=== PATIENT | male | born 1950 | race Caucasian/White ===

== ENCOUNTER 2016-06-11 12:41 | Emergency (ER) | payer MEDICARE ==
[~2016-06-11] VITALS: Ht 172.7 cm; Wt 68.0 kg
[~2016-06-11 12:41] MED LIST: ALLO100T PO; ATOR40TA PO; BACL10TA PO; CELE100C PO; ECASA PO; GABA300C3 PO; LISI5 PO; OMEP20TA39 PO; PROZ20CA11 PO
[2016-06-11] MEDS ORDERED: SODIUM CHLOR 0.9% 1000 ML INJ 1,000 ML IV ONE (12:50)
[2016-06-11 12:51] VITALS: BP 113/73; PULSE 68; RESP 18; TEMP 97.8; O2SAT 94
--- NOTE | 2016-06-11 12:54 | PD ---
HPI Chief Complaint: Syncope/Near-Syncope Time Seen by Provider: 12:50 Travel History International Travel<30 days: No Contact w/Intl Traveler<30days: No History of Present Illness HPI Patient is a 65-year-old male who presents the emergency department after syncopal episode. Patient states that he was bending over to take food out of the abdomen when he felt lightheaded, dizzy, nauseous and fell backwards, with a syncopal episode. It is unclear to me whether family caught him or whether he hit his head but he does now have a left-sided primarily temporal headache. Mild nausea but no vomiting. No associated chest pain, shortness breath, palpitations. Patient notes a history of seizure disorder, CVA and hypertension. Vital signs and twelve-lead EKG stable per EMS. PFSH Past Medical History Hx Anticoagulant Therapy: Yes (81 MG ASA) Arthritis: Yes Asthma: Yes Autoimmune Disease: No Blood Disorders: No Anxiety: Yes Depression: Yes Heart Rhythm Problems: No Cancer: No Cardiovascular Problems: No High Cholesterol: Yes Chemotherapy: No Chest Pain: No Congestive Heart Failure: No COPD: No Cerebrovascular Accident: No Diabetes: No Diminished Hearing: Yes ([place]) Endocrine: No GERD: Yes Glaucoma: No Gout: Yes Genitourinary: No Headaches: No Hepatitis: No Hiatal Hernia: No Hypertension: No Immune Disorder: No Implanted Vascular Access Dvce: Yes Kidney Stones: Yes Musculoskeletal: Yes (neck and back problems) Neurologic: No Psychiatric: Yes (anxiety and depression) Reproductive: No Respiratory: Yes (ASTHAM) Immunizations Current: Yes Myocardial Infarction: No Radiation Therapy: No Renal Failure: No Seizures: No Sickle Cell Disease: No Sleep Apnea: No Thyroid Disease: No Ulcer: No Past Surgical History Abdominal Surgery: No AICD: No Body Medical Devices: spinal cord stimulator rods in the back Cardiac Surgery: No Ear Surgery: No Endocrine Surgery: No Eye Surgery: Yes (dalia cataract surgery) Genitourinary Surgery: No Gynecologic Surgery: No Joint Replacement: No Oral Surgery: No Thoracic Surgery: No Other Surgery: Yes (BACK FUSION IN 1999,C5-6) Social History Alcohol Use: No Tobacco Use: No Substance Use: Yes (MARIJUANNA) Allergies-Medications (Allergen,Severity, Reaction): Coded Allergies: MRI PRECAUTION (Verified Adverse Reaction, Severe, NON COMPATIBLE SPINAL CORD STIMULATOR 09/09/15 KMD, 09/09/15) [employer] PERCISION PLUS SPINAL CORD STIMULATOR Reported Meds & Prescriptions Reported Meds & Active Scripts Active Celebrex (Celecoxib) 100 Mg Cap 100 Mg PO BID Prinivil 5 mg (Lisinopril) 5 Mg Tab 5 Mg PO Q12HR Aspirin EC (Aspirin) 325 Mg Tab 325 Mg PO DAILY 30 Days Reported Gabapentin 300 Mg Cap 600 Mg PO HS Gabapentin 300 Mg Cap 300 Mg PO BID Take 1 capsule (300mg) in the morning and at 4pm Atorvastatin 40 mg (Atorvastatin Calcium) 40 Mg Tab 40 Mg PO DAILY Allopurinol 100 Mg Tab 200 Mg PO DAILY Hm Omeprazole (Omeprazole) 20 Mg Tab 20 Mg PO DAILY Lioresal (Baclofen) 10 Mg Tab 10 Mg PO BID Prozac (Fluoxetine HCl) 20 Mg Cap 20 Mg PO DAILY Review of Systems Except as stated in HPI: all other systems reviewed are Neg Physical Exam Narrative GENERAL: Well-appearing male in no acute distress SKIN: Focused skin assessment warm/dry. HEAD: Atraumatic. Normocephalic. EYES: Pupils equal and round. No scleral icterus. No injection or drainage. ENT: No nasal bleeding or discharge. Mucous membranes pink and moist. NECK: Supple without midline tenderness to palpation. No JVD. CARDIOVASCULAR: Regular rate and rhythm. No murmur appreciated. RESPIRATORY: No accessory muscle use. Clear to auscultation. Breath sounds equal bilaterally. GASTROINTESTINAL: Abdomen soft, non-tender, nondistended. MUSCULOSKELETAL: No obvious deformities. No edema. NEUROLOGICAL: Awake and alert. No obvious cranial nerve deficits. Motor grossly within normal limits. Normal speech. PSYCHIATRIC: Appropriate mood and affect; insight and judgment normal. Data Data Last Documented VS Vital Signs Date Time Temp Pulse Resp B/P Pulse Ox O2 Delivery O2 Flow Rate FiO2 06/11/16 12:51 97.8 68 18 113/73 94 Orders Electrocardiogram (06/11/16 12:50) Basic Metabolic Panel (Bmp) (06/11/16 12:50) Complete Blood Count With Diff (06/11/16 12:50) Magnesium (Mg) (06/11/16 12:50) Troponin I (06/11/16 12:50) Ct Brain W/O Iv Contrast(Rout) (06/11/16 12:50) Ecg Monitoring (06/11/16 12:50) Iv Access Insert/Monitor (06/11/16 12:50) Oximetry (06/11/16 12:50) Ondansetron Inj (Zofran Inj) (06/11/16 13:00) Sodium Chloride 0.9% Flush (Ns Flush) (06/11/16 13:00) Sodium Chlor 0.9% 1000 Ml Inj (Ns 1000 M (06/11/16 12:50) MDM Medical Decision Making Medical Screen Exam Complete: Yes Emergency Medical Condition: Yes Medical Record Reviewed: Yes Differential Diagnosis 65-year-old male with history of HTN, CVA, seizure disorder here after syncopal episode. Differential includes orthostasis, arrhythmia, electrolyte abnormality , symptomatic anemia, subarachnoid hemorrhage, ACS. Narrative Course Patient placed on monitor, IV established and blood obtained. Given 1 L normal saline bolus, 4 mg Zofran. Twelve-lead EKG showed sinus rhythm without notable ST abnormalities, normal intervals. CBC, BMP, magnesium, troponin notable for[- ]. CT of the brain showed[-] Nidhi Meneses MD Jun 11, 2016 12:54
[2016-06-11] MEDS ORDERED: SODIUM CHLORIDE 0.9% FLUSH 10 ML FLUSH IVF PRN (13:00)
[2016-06-11] MEDS ORDERED: ONDANSETRON HCL 4 MG/2 ML VIAL IVP ONE (13:00)
[2016-06-11] MEDS ORDERED: ATOR40TA16 PO (13:20)
[2016-06-11] MEDS ORDERED: ASPI81CH CHEW (13:20)
[2016-06-11] MEDS ORDERED: ALLO100T PO (13:20)
[2016-06-11] MEDS ORDERED: PROZ20CA11 PO (13:20)
[2016-06-11] MEDS ORDERED: LISI-519 PO (13:20)
[2016-06-11] MEDS ORDERED: BACL10TA PO (13:20)
[2016-06-11] MEDS ORDERED: GABA300C5 PO (13:20)
[2016-06-11] MEDS ORDERED: OMEP20TA PO (13:20)
[2016-06-11 13:22] LABS: AUTOMATED NEUTROPHIL # 10.6 TH/MM3 (1.8-7.7); BASOPHIL # 0.1 TH/MM3 (0-0.2); BASOPHIL % 0.5 % (0.0-2.0); EOSINOPHIL # 0.4 TH/MM3 (0-0.4); EOSINOPHIL % 2.6 % (0.0-4.0); HEMATOCRIT 41.3 % (39.0-51.0); HEMO FLAGS DIFF FINAL; LYMPHOCYTE # 2.2 TH/MM3 (1.0-4.8); MEAN CELL VOLUME 92.3 FL (80.0-100.0); MEAN CORPUSCULAR HEMOGLOBIN 30.3 PG (27.0-34.0); MEAN CORPUSCULAR HGB CONC 32.8 % (32.0-36.0); MONO % 8.6 % (0.0-8.0); NEUT % 73.3 % (16.0-70.0); PLATELET COUNT 212 TH/MM3 (150-450); RED BLOOD COUNT 4.48 MIL/MM3 (4.50-5.90); RED CELL DISTRIBUTION WIDTH 13.5 % (11.6-17.2); WHITE BLOOD COUNT 14.5 TH/MM3 (4.0-11.0)
[2016-06-11 13:28] LABS: ANION GAP 6 MEQ/L (5-15); BICARBONATE 28.5 MEQ/L (21.0-32.0); BLOOD UREA NITROGEN 30 MG/DL (7-18); CHLORIDE 105 MEQ/L (98-107); GLOMERULAR FILTRATION RATE 39 ML/MIN (>89); MAGNESIUM 2.1 MG/DL (1.5-2.5); POTASSIUM 4.8 MEQ/L (3.5-5.1); SODIUM (NA) 139 MEQ/L (136-145)
--- NOTE | 2016-06-11 13:49 | RADRPT ---
EXAM DATE/TIME: 06/11/2016 13:24 [facility] COMPARISON: CT BRAIN W/O CONTRAST, September 11, 2015, 11:56. INDICATIONS : Syncopal episode and general weakness today. RADIATION DOSE: 36.65 CTDIvol (mGy) MEDICAL HISTORY : Stroke. Seizures. SURGICAL HISTORY : Fusion, cervical. ENCOUNTER: Initial ACUITY: 1 day PAIN SCALE: 0/10 LOCATION: Bilateral head TECHNIQUE: Multiple contiguous axial images were obtained of the head. Using automated exposure control and adj ustment of the mA and/or kV according to patient size, radiation dose was kept as low as reasonably a chievable to obtain optimal diagnostic quality images. FINDINGS: There is no evidence for intracranial hemorrhage, mass effect, mass lesions, or edema. The visualize d bony structures appear intact. Slight degree of brain atrophy is seen. Slight periventricular whit e matter changes are seen nonspecific mostly consistent with chronic small vessel ischemic changes. There are no signs of acute infarction for technique. 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 There is sinusitis in multiple sinuses worse in the maxillary sinu ses. CONCLUSION: Slight atrophic and small vessel ischemic changes without any evidence for acute hemorrhage or mass effect. Elizabeth Muñoz MD on June 11, 2016 at 13:45 Board Certified Radiologist. This report was verified electronically.
[2016-06-11 14:26] VITALS: BP 115/70
--- NOTE | 2016-06-12 11:50 | EKG ---
Date Performed: 06/11/2016 Time Performed: 13:08:41 PTAGE: 65 years EKG: Sinus rhythm ABNORMAL RHYTHM ECG PREVIOUS TRACING : 09/08/2015 13.30 Compared to prior tracing no significant change DOCTOR: Eugenio Turpin Interpretating Date/Time 06/12/2016 11:49:15
== END 2016-06-11 14:49 | disposition home or self-care (01) ==
LOC: NEPE 12:41
DX: R55 Syncope and collapse (principal); F41.8 Other specified anxiety disorders; I10 Essential (primary) hypertension; E78.00 Pure hypercholesterolemia, unspecified; R94.31 Abnormal electrocardiogram [ECG] [EKG]; Z86.73 Personal history of transient ischemic attack (TIA), and cerebral infarction without residual deficits; Z79.82 Long term (current) use of aspirin
CPT/HCPCS: 70450; 80048; 83735; 84484; 85025; 93005; 96361; 96374; 99284; J2405; J7030

== ENCOUNTER 2017-01-13 21:48 | Emergency (ER) | payer MEDICARE ==
[~2017-01-13] VITALS: Ht 172.7 cm; Wt 70.0 kg
[~2017-01-13 21:48] MED LIST changes: +ASPI-516 CHEW; -ATOR40TA PO; +ATOR40TA16 PO; -CELE100C PO; -ECASA PO; -GABA300C3 PO; +GABA300C5 PO; +LISI-519 PO; -LISI5 PO; -OMEP20TA39 PO; +OMEP20TA93 PO
[2017-01-13 21:53] VITALS: PULSE 70; RESP 16; TEMP 97.9; O2SAT 96
[2017-01-13 22:02] VITALS: BP 145/77
[2017-01-13] MEDS ORDERED: TRAM50TA PO (22:09)
[2017-01-13] MEDS ORDERED: oxyCODONE/ACETAMINOPHEN 7.5 MG/325 MG TAB PO ONE (22:15)
--- NOTE | 2017-01-13 22:21 | PD ---
HPI Chief Complaint: Hip Injury Time Seen by Provider: 21:55 Travel History International Travel<30 days: No Contact w/Intl Traveler<30days: No Traveled to known affect area: No History of Present Illness HPI 66-year-old male arrives complaining of right hip pain. It has been bothersome for a few months at least. He saw rheumatology [address] imaging of the hands and hips was advised however the patient was unable to do so due to cost. He reports a continuous pain since then typically for over 10 however yesterday the pain became quite a bit worse somewhat suddenly and it is remained more or less severe since. He has been unable to walk on stairs due to the pain. He denies fall/excessive use. He reports no drug or alcohol abuse. He does not smoke cigarettes. He last took tramadol about 8 hours prior and reports compliance with Neurontin generally has been a positive. PFSH Past Medical History Hx Anticoagulant Therapy: Yes (asa) Arthritis: Yes Asthma: Yes Autoimmune Disease: No Blood Disorders: No Anxiety: Yes Depression: Yes Heart Rhythm Problems: No Cancer: No Cardiovascular Problems: No High Cholesterol: Yes Chemotherapy: No Chest Pain: No Congestive Heart Failure: No COPD: No Cerebrovascular Accident: Yes Diabetes: No Diminished Hearing: Yes ([place]) Endocrine: No GERD: Yes Glaucoma: No Gout: Yes Genitourinary: No Headaches: No Hepatitis: No Hiatal Hernia: No Hypertension: No Immune Disorder: No Implanted Vascular Access Dvce: Yes Kidney Stones: Yes Medical other: Yes (reflux hx of kidney stones arthritis gout) Musculoskeletal: Yes (neck and back problems) Neurologic: No Psychiatric: Yes (anxiety and depression) Reproductive: No Respiratory: Yes (ASTHAM) Immunizations Current: Yes Myocardial Infarction: No Radiation Therapy: No Renal Failure: No Seizures: No Sickle Cell Disease: No Sleep Apnea: No Thyroid Disease: No Ulcer: No Influenza Vaccination: Yes Past Surgical History Abdominal Surgery: No AICD: No Body Medical Devices: spinal cord stimulator rods in the back Cardiac Surgery: No Ear Surgery: No Endocrine Surgery: No Eye Surgery: Yes (dalia cataract surgery) Genitourinary Surgery: No Gynecologic Surgery: No Joint Replacement: No Oral Surgery: No Thoracic Surgery: No Other Surgery: Yes (BACK FUSION IN 1999,C5-6) Social History Alcohol Use: No Tobacco Use: No Substance Use: Yes (JANETTE) Allergies-Medications (Allergen,Severity, Reaction): Coded Allergies: MRI PRECAUTION (Verified Adverse Reaction, Severe, NON COMPATIBLE SPINAL CORD STIMULATOR 09/09/15 KMD, 09/09/15) [employer] PERCISION PLUS SPINAL CORD STIMULATOR Reported Meds & Prescriptions Reported Meds & Active Scripts Active Reported Tramadol (Tramadol HCl) 50 Mg Tab 50 Mg PO Q6H PRN Omeprazole 20 Mg Tab 20 Mg PO DAILY Gabapentin 300 Mg Cap 300 Mg PO QID Prozac (Fluoxetine HCl) 20 Mg Cap 20 Mg PO DAILY Atorvastatin (Atorvastatin Calcium) 40 Mg Tab 40 Mg PO HS Baclofen 10 Mg Tab 10 Mg PO HS PRN Aspirin 81 Mg Chew 324 Mg CHEW DAILY Allopurinol 100 Mg Tab 100 Mg PO DAILY Review of Systems Except as stated in HPI: all other systems reviewed are Neg General / Constitutional: No: Fever Musculoskeletal: Positive: Pain Physical Exam Narrative GENERAL: 66 yo M, WNWD, mild distress 2/2 pain SKIN: Warm and dry. HEAD: Atraumatic. Normocephalic. EYES: Pupils equal and round. No scleral icterus. No injection or drainage. ENT: No nasal bleeding or discharge. Mucous membranes pink and moist. NECK: Trachea midline. No JVD. CARDIOVASCULAR: Regular rate and rhythm. RESPIRATORY: No accessory muscle use. Clear to auscultation. Breath sounds equal bilaterally. GASTROINTESTINAL: Abdomen soft, non-tender, nondistended. Hepatic and splenic margins not palpable. MUSCULOSKELETAL: Passive ROM R hip somewhat limited 2/2 pain. No erythema/ warmth or tenderness or deformity overlying R greater trochanter. LLE normal. NEUROLOGICAL: Awake and alert. No obvious cranial nerve deficits. Motor grossly within normal limits. Five out of 5 muscle strength in the arms and legs. Normal speech. PSYCHIATRIC: Appropriate mood and affect; insight and judgment normal. Data Data Last Documented VS Vital Signs Date Time Temp Pulse Resp B/P (MAP) Pulse Ox O2 Delivery O2 Flow Rate FiO2 01/13/17 22:02 145/77 (99) 01/13/17 21:53 97.9 70 16 96 VS reviewed Orders Orders Hip, Uni(Ap&Lat) W Ap Pelvis (01/13/17 ) Oxycodone-Acetamin 7.5-325 Mg (Percocet (01/13/17 22:15) MDM Medical Decision Making Medical Screen Exam Complete: Yes Emergency Medical Condition: Yes Medical Record Reviewed: Yes Differential Diagnosis Septic arthritis fracture referred pain Narrative Course Last Impressions Hip and Pelvis X-Ray 01/13/17 0000 Signed Impressions: Service Date/Time: Friday, January 13, 2017 22:21 - CONCLUSION: Normal radiographic appearance of the pelvis and right hip. Fred Story MD Patient found sleeping at time of reassessment, 10:45 PM, provides additional history reiterating a long history of pain in the intent to change insurance and establish follow-up. Diagnosis Primary Impression: Left hip pain Referrals: Elliot Islas MD 2 days Med/Other Pt SpecificInfo: Prescription(s) given Scripts Hydrocodone-Acetaminophen (Hydrocodone-Acetaminophen) 7.5-300 Mg Tab 1 TAB PO Q8HR Y for PAIN SCALE 6 TO 10, #12 TAB 0 Refills Prov: Charlie Matos MD 01/13/17 Disposition: 01 DISCHARGE HOME Condition: Stable Charlie Matos MD Jan 13, 2017 22:21
--- NOTE | 2017-01-13 22:43 | RADRPT ---
EXAM DATE/TIME: 01/13/2017 22:21 [facility] COMPARISON: No previous studies available for comparison. INDICATIONS : Right hip pain MEDICAL HISTORY : Stroke. Hypercholesterolemia. Seizures. SURGICAL HISTORY : L-Spine fusion. C-Spine fusion. Nerve stimulator. ENCOUNTER: Initial ACUITY: 2 days PAIN SCORE: 10/10 LOCATION: Right Hip FINDINGS: Examination of the right hip was performed with AP Pelvis. The primary and secondary trabecular oscar chase of the femoral neck is intact. The hip joint is of normal width without significant sclerosis or bony hypertrophy. The acetabulum is grossly intact. CONCLUSION: Normal radiographic appearance of the pelvis and right hip. Fred Story MD on January 13, 2017 at 22:41 Board Certified Radiologist. This report was verified electronically.
[2017-01-13] MEDS ORDERED: HYDR-2376 PO (22:52)
[2017-01-13 23:08] VITALS: BP 125/56; PULSE 79; RESP 16; O2SAT 97
[2017-01-15] MEDS ORDERED: HYDR-3580 PO (09:47)
--- NOTE | 2017-01-15 09:47 | PD ---
Data Data Last Documented VS Vital Signs Date Time Temp Pulse Resp B/P (MAP) Pulse Ox O2 Delivery O2 Flow Rate FiO2 01/13/17 23:08 79 16 125/56 (79) 97 Room Air 01/13/17 21:53 97.9 Orders Orders Hip, Uni(Ap&Lat) W Ap Pelvis (01/13/17 ) Oxycodone-Acetamin 7.5-325 Mg (Percocet (01/13/17 22:15) Ed Discharge Order (01/13/17 22:53) MDM Supervised Visit with LUIS: No Narrative Course Patient returned with Lortab prescription. Pharmacy was unable to fill because it was written for 7.5 hydrocodone and 300 mg of acetaminophen. They requested we changed to 325 mg of acetaminophen which I did and I disposed of the prior prescription. Diagnosis Primary Impression: Left hip pain Referrals: Elliot Islas MD 2 days Patient Instructions: General Instructions Departure Forms: Tests/Procedures Scripts Hydrocodone/Acetaminophen (Hydrocodone-Acetamin 7.5-325) 7.5 Mg-325 Mg Tablet 1 TAB PO Q8HR Y for PAIN SCALE 4 TO 10, #12 Prov: Nel Pittman MD 01/15/17 Hydrocodone-Acetaminophen (Hydrocodone-Acetaminophen) 7.5-300 Mg Tab 1 TAB PO Q8HR Y for PAIN SCALE 6 TO 10, #12 TAB 0 Refills Prov: Charlie Matos MD 01/13/17 Disposition: 01 DISCHARGE HOME Condition: Stable Nel Pittman MD Jan 15, 2017 09:47
== END 2017-01-13 23:09 | disposition home or self-care (01) ==
LOC: NEPE 21:48
DX: M25.551 Pain in right hip (principal); J45.909 Unspecified asthma, uncomplicated; Z79.01 Long term (current) use of anticoagulants
CPT/HCPCS: 73502; 99283

== ENCOUNTER 2017-05-21 15:32 | Observation (INO) | payer MEDICARE ==
[~2017-05-21] VITALS: Ht 172.7 cm; Wt 72.7 kg
[~2017-05-21 15:32] MED LIST changes: +HYDR-2376 PO; +HYDR-3580 PO; -LISI-519 PO; +TRAM50TA PO
[2017-05-21 15:46] VITALS: BP 179/105; PULSE 71; RESP 18; TEMP 98.6; O2SAT 98
[2017-05-21 15:50] VITALS: BP 179/105; PULSE 72; RESP 18; TEMP 98.6; O2SAT 96
[2017-05-21 15:54] VITALS: RESP 18; O2SAT 96
--- NOTE | 2017-05-21 15:58 | PD ---
HPI Chief Complaint: Chest Pain Time Seen by Provider: 15:50 Travel History International Travel<30 days: No Contact w/Intl Traveler<30days: No Traveled to known affect area: No History of Present Illness HPI 66-year-old male with PMH of CVA on daily aspirin therapy presents to the ED via EMS for evaluation of 6/10 left central chest pain. Onset at rest approximately 2 hours ago. Patient endorses similar episodes over the last month or so. He denies associated palpitations, shortness of breath, nausea, vomiting, diaphoresis. He states that the pain is worsened by taking a deep breath and certain movements. No radiation of the pain. He can identify no acute injury or recent overuse of the area. He denies personal cardiac history. He is a nonsmoker. He states that he worked in the [email or web address] business his entire life. He endorses heart attack in his father in his mid 60s. He has a history of chronic back pain and has an implanted spinal stimulator. He takes daily Robaxin and tramadol. PFSH Past Medical History Hx Anticoagulant Therapy: Yes (asa) Arthritis: Yes Asthma: Yes Autoimmune Disease: No Blood Disorders: No Anxiety: Yes Depression: Yes Heart Rhythm Problems: No Cancer: No Cardiovascular Problems: No High Cholesterol: Yes Chemotherapy: No Chest Pain: No Congestive Heart Failure: No COPD: No Cerebrovascular Accident: Yes Diabetes: No Diminished Hearing: Yes ([place]) Endocrine: No GERD: Yes Glaucoma: No Gout: Yes Genitourinary: No Headaches: No Hepatitis: No Hiatal Hernia: No Hypertension: No Immune Disorder: No Implanted Vascular Access Dvce: Yes Kidney Stones: Yes Musculoskeletal: Yes (neck and back problems) Neurologic: No Psychiatric: Yes (anxiety and depression) Reproductive: No Respiratory: Yes (ASTHAM) Immunizations Current: Yes Myocardial Infarction: No Radiation Therapy: No Renal Failure: No Seizures: No Sickle Cell Disease: No Sleep Apnea: No Thyroid Disease: No Ulcer: No Past Surgical History Abdominal Surgery: No AICD: No Body Medical Devices: spinal cord stimulator rods in the back Cardiac Surgery: No Ear Surgery: No Endocrine Surgery: No Eye Surgery: Yes (dalia cataract surgery) Genitourinary Surgery: No Gynecologic Surgery: No Joint Replacement: No Oral Surgery: No Thoracic Surgery: No Other Surgery: Yes (BACK FUSION IN 1999,C5-6) Social History Alcohol Use: No Tobacco Use: No Substance Use: Yes (ARTUROJUANNA) Allergies-Medications (Allergen,Severity, Reaction): Coded Allergies: MRI PRECAUTION (Verified Adverse Reaction, Severe, NON COMPATIBLE SPINAL CORD STIMULATOR 09/09/15 KMD, 09/09/15) [employer] PERCISION PLUS SPINAL CORD STIMULATOR Reported Meds & Prescriptions Reported Meds & Active Scripts Active Hydrocodone-Acetamin 7.5-325 (Hydrocodone/Acetaminophen) 7.5 Mg-325 Mg Tablet 1 Tab PO Q8HR PRN Hydrocodone-Acetaminophen 7.5-300 Mg Tab 1 Tab PO Q8HR PRN Reported Tramadol (Tramadol HCl) 50 Mg Tab 50 Mg PO Q6H PRN Omeprazole 20 Mg Tab 20 Mg PO DAILY Gabapentin 300 Mg Cap 300 Mg PO QID Prozac (Fluoxetine HCl) 20 Mg Cap 20 Mg PO DAILY Atorvastatin (Atorvastatin Calcium) 40 Mg Tab 40 Mg PO HS Baclofen 10 Mg Tab 10 Mg PO HS PRN Aspirin 81 Mg Chew 324 Mg CHEW DAILY Allopurinol 100 Mg Tab 100 Mg PO DAILY Review of Systems Except as stated in HPI: all other systems reviewed are Neg Physical Exam Narrative GENERAL: Well-nourished, well-developed white male in no acute distress. SKIN: Focused skin assessment warm/dry. HEAD: Normocephalic. EYES: No scleral icterus. No injection or drainage. NECK: Supple, trachea midline. No JVD or lymphadenopathy. CARDIOVASCULAR: Regular rate and rhythm without murmurs, gallops, or rubs. CHEST: Nontender throughout without deformity or crepitus. No retractions. RESPIRATORY: Breath sounds clear and equal bilaterally. No accessory muscle use. GASTROINTESTINAL: Abdomen soft, non-tender, nondistended. Active bowel sounds. MUSCULOSKELETAL: No cyanosis, or edema. Moves extremities spontaneously. BACK: Nontender without obvious deformity. No CVA tenderness. Data Data Last Documented VS Vital Signs Date Time Temp Pulse Resp B/P (MAP) Pulse Ox O2 Delivery O2 Flow Rate FiO2 05/21/17 15:54 18 96 Room Air 05/21/17 15:50 74 05/21/17 15:50 98.6 Orders Orders Electrocardiogram (05/21/17 15:50) Ckmb (Isoenzyme) Profile (05/21/17 15:50) Complete Blood Count With Diff (05/21/17 15:50) Comprehensive Metabolic Panel (05/21/17 15:50) Magnesium (Mg) (05/21/17 15:50) Prothrombin Time / Inr (Pt) (05/21/17 15:50) Act Partial Throm Time (Ptt) (05/21/17 15:50) Troponin I (05/21/17 15:50) Ecg Monitoring (05/21/17 15:50) Bilateral Bp Monitoring (05/21/17 15:50) Iv Access Insert/Monitor (05/21/17 15:50) Oximetry (05/21/17 15:50) Sodium Chloride 0.9% Flush (Ns Flush) (05/21/17 16:00) Chest, Pa & Lat (05/21/17 15:50) CKMB (05/21/17 15:54) CKMB% (05/21/17 15:54) Admit Order (Ed Use Only) (05/21/17 17:07) Place In Observation (05/21/17 17:07) Activity Bed Rest With Brp (05/21/17 17:07) Vital Signs (Adult) Q4H (05/21/17 17:07) Cardiac Rhythm .As Directed (05/21/17 17:07) Notify Dr: Other .PRN (05/21/17 17:07) Notify Dr. Parameters (05/21/17 17:07) Resp Oxygen Nasal Cannula (05/21/17 ) Ckmb (Isoenzyme) Profile (05/21/17 17:07) Ckmb (Isoenzyme) Profile (05/21/17 20:07) Troponin I (05/21/17 17:07) Troponin I (05/21/17 20:07) Electrocardiogram (05/21/17 17:07) Electrocardiogram (05/21/17 20:07) ^ Obtain (05/21/17 17:07) Sodium Chloride 0.9% Flush (Ns Flush) (05/21/17 17:15) Sodium Chloride 0.9% Flush (Ns Flush) (05/21/17 21:00) Power Distribution Engineer / Telemetry MAYELA.Q8H (05/21/17 17:07) Diet Heart Healthy (05/21/17 Dinner) Npo After Midnight W/ Po Meds (05/21/17 Dinner) Labs Laboratory Tests Test 05/21/17 15:54 White Blood Count 10.6 TH/MM3 Red Blood Count 4.70 MIL/MM3 Hemoglobin 14.9 GM/DL Hematocrit 44.0 % Mean Corpuscular Volume 93.6 FL Mean Corpuscular Hemoglobin 31.6 PG Mean Corpuscular Hemoglobin Concent 33.8 % Red Cell Distribution Width 14.1 % Platelet Count 220 TH/MM3 Mean Platelet Volume 8.2 FL Neutrophils (%) (Auto) 59.0 % Lymphocytes (%) (Auto) 29.5 % Monocytes (%) (Auto) 8.0 % Eosinophils (%) (Auto) 2.7 % Basophils (%) (Auto) 0.8 % Neutrophils # (Auto) 6.3 TH/MM3 Lymphocytes # (Auto) 3.1 TH/MM3 Monocytes # (Auto) 0.9 TH/MM3 Eosinophils # (Auto) 0.3 TH/MM3 Basophils # (Auto) 0.1 TH/MM3 CBC Comment DIFF FINAL Differential Comment Prothrombin Time 10.2 SEC Prothromb Time International Ratio 1.0 RATIO Activated Partial Thromboplast Time 28.5 SEC Blood Urea Nitrogen 20 MG/DL Creatinine 1.13 MG/DL Random Glucose 76 MG/DL Total Protein 6.9 GM/DL Albumin 3.7 GM/DL Calcium Level 8.5 MG/DL Magnesium Level 2.0 MG/DL Alkaline Phosphatase 114 U/L Aspartate Amino Transf (AST/SGOT) 23 U/L Alanine Aminotransferase (ALT/SGPT) 27 U/L Total Bilirubin 0.5 MG/DL Sodium Level 140 MEQ/L Potassium Level 4.3 MEQ/L Chloride Level 106 MEQ/L Carbon Dioxide Level 29.3 MEQ/L Anion Gap 5 MEQ/L Estimat Glomerular Filtration Rate 65 ML/MIN Total Creatine Kinase 139 U/L Creatine Kinase MB 2.9 NG/ML Troponin I LESS THAN 0.02 NG/ML [facility] Medical Decision Making Medical Screen Exam Complete: Yes Emergency Medical Condition: Yes Differential Diagnosis Musculoskeletal chest pain versus angina versus ACS versus other Narrative Course 66-year-old male with PMH of CVA on daily aspirin therapy presents to the ED via EMS for evaluation of 6/10 left central chest pain. Onset at rest approximately 2 hours ago. Patient endorses similar episodes over the last month or so. He states that the pain is worsened by taking a deep breath and certain movements. He denies personal cardiac history. He is a nonsmoker. He states that he worked in the [email or web address] business his entire life. He endorses heart attack in his father in his mid 60s. On arrival heart rate 71, BP 179/ 105. Physical exam is unremarkable. She states pain is 1- 2/10 on arrival. EKG rate 69, sinus rhythm. TX interval 139, QRS 95, QTC 391 ms. Normal axis. No acute ST changes. Reviewed by Dr. Holt. CXR: No acute disease per radiology read. Cardiac enzymes negative 1. CBC, CMP, coags all unremarkable. On recheck BP 131/70. I discussed the results of the workup with the patient. I recommended admission to the chest pain center for further evaluation. He is agreeable with this plan. Please see chest pain center notes for disposition. Ally Lopez May 21, 2017 15:58
[2017-05-21] MEDS ORDERED: SODIUM CHLORIDE 0.9% FLUSH 10 ML FLUSH IVF PRN (16:00)
[2017-05-21 16:11] LABS: AUTOMATED NEUTROPHIL # 6.3 TH/MM3 (1.8-7.7); BASOPHIL # 0.1 TH/MM3 (0-0.2); BASOPHIL % 0.8 % (0.0-2.0); EOSINOPHIL # 0.3 TH/MM3 (0-0.4); EOSINOPHIL % 2.7 % (0.0-4.0); HEMOGLOBIN 14.9 GM/DL (13.0-17.0); LYMPH % 29.5 % (9.0-44.0); LYMPHOCYTE # 3.1 TH/MM3 (1.0-4.8); MEAN CELL VOLUME 93.6 FL (80.0-100.0); MEAN CORPUSCULAR HEMOGLOBIN 31.6 PG (27.0-34.0); MEAN CORPUSCULAR HGB CONC 33.8 % (32.0-36.0); MEAN PLATELET VOLUME 8.2 FL (7.0-11.0); MONOCYTE # 0.9 TH/MM3 (0-0.9); PLATELET COUNT 220 TH/MM3 (150-450); RED CELL DISTRIBUTION WIDTH 14.1 % (11.6-17.2); WHITE BLOOD COUNT 10.6 TH/MM3 (4.0-11.0)
--- NOTE | 2017-05-21 16:19 | PD ---
Physical Exam Narrative I, Dr. Holt, have reviewed the advance practice practitioner's documentation and am in agreement, met with the patient face to face, made the diagnosis, and the medical decision making was done by me. *My assessment and Findings: Patient is a 66 year old male who comes in complaining of chest pain. Exam shows lungs CTA, heart rate RRR. Data Data Last Documented VS Vital Signs Date Time Temp Pulse Resp B/P (MAP) Pulse Ox O2 Delivery O2 Flow Rate FiO2 05/21/17 15:54 18 96 Room Air 05/21/17 15:50 74 05/21/17 15:50 98.6 Orders Orders Electrocardiogram (05/21/17 15:50) Ckmb (Isoenzyme) Profile (05/21/17 15:50) Complete Blood Count With Diff (05/21/17 15:50) Comprehensive Metabolic Panel (05/21/17 15:50) Magnesium (Mg) (05/21/17 15:50) Prothrombin Time / Inr (Pt) (05/21/17 15:50) Act Partial Throm Time (Ptt) (05/21/17 15:50) Troponin I (05/21/17 15:50) Ecg Monitoring (05/21/17 15:50) Bilateral Bp Monitoring (05/21/17 15:50) Iv Access Insert/Monitor (05/21/17 15:50) Oximetry (05/21/17 15:50) Sodium Chloride 0.9% Flush (Ns Flush) (05/21/17 16:00) Chest, Pa & Lat (05/21/17 15:50) CKMB (05/21/17 15:54) CKMB% (05/21/17 15:54) Admit Order (Ed Use Only) (05/21/17 17:07) Place In Observation (05/21/17 17:07) Activity Bed Rest With Brp (05/21/17 17:07) Vital Signs (Adult) Q4H (05/21/17 17:07) Cardiac Rhythm .As Directed (05/21/17 17:07) Notify Dr: Other .PRN (05/21/17 17:07) Notify Parameters (05/21/17 17:07) Resp Oxygen Nasal Cannula (05/21/17 ) Ckmb (Isoenzyme) Profile (05/21/17 17:07) Ckmb (Isoenzyme) Profile (05/21/17 20:07) Troponin I (05/21/17 17:07) Troponin I (05/21/17 20:07) Electrocardiogram (05/21/17 17:07) Electrocardiogram (05/21/17 20:07) ^ Obtain (05/21/17 17:07) Sodium Chloride 0.9% Flush (Ns Flush) (05/21/17 17:15) Sodium Chloride 0.9% Flush (Ns Flush) (05/21/17 21:00) Pharmacy Intern / Telemetry MAYELA.Q8H (05/21/17 17:07) CKMB (05/21/17 18:36) CKMB% (05/21/17 18:36) CKMB (05/21/17 21:30) CKMB% (05/21/17 21:30) Labs Laboratory Tests Test 05/21/17 15:54 White Blood Count 10.6 TH/MM3 Red Blood Count 4.70 MIL/MM3 Hemoglobin 14.9 GM/DL Hematocrit 44.0 % Mean Corpuscular Volume 93.6 FL Mean Corpuscular Hemoglobin 31.6 PG Mean Corpuscular Hemoglobin Concent 33.8 % Red Cell Distribution Width 14.1 % Platelet Count 220 TH/MM3 Mean Platelet Volume 8.2 FL Neutrophils (%) (Auto) 59.0 % Lymphocytes (%) (Auto) 29.5 % Monocytes (%) (Auto) 8.0 % Eosinophils (%) (Auto) 2.7 % Basophils (%) (Auto) 0.8 % Neutrophils # (Auto) 6.3 TH/MM3 Lymphocytes # (Auto) 3.1 TH/MM3 Monocytes # (Auto) 0.9 TH/MM3 Eosinophils # (Auto) 0.3 TH/MM3 Basophils # (Auto) 0.1 TH/MM3 CBC Comment DIFF FINAL Differential Comment Prothrombin Time 10.2 SEC Prothromb Time International Ratio 1.0 RATIO Activated Partial Thromboplast Time 28.5 SEC Blood Urea Nitrogen 20 MG/DL Creatinine 1.13 MG/DL Random Glucose 76 MG/DL Total Protein 6.9 GM/DL Albumin 3.7 GM/DL Calcium Level 8.5 MG/DL Magnesium Level 2.0 MG/DL Alkaline Phosphatase 114 U/L Aspartate Amino Transf (AST/SGOT) 23 U/L Alanine Aminotransferase (ALT/SGPT) 27 U/L Total Bilirubin 0.5 MG/DL Sodium Level 140 MEQ/L Potassium Level 4.3 MEQ/L Chloride Level 106 MEQ/L Carbon Dioxide Level 29.3 MEQ/L Anion Gap 5 MEQ/L Estimat Glomerular Filtration Rate 65 ML/MIN Total Creatine Kinase 139 U/L Creatine Kinase MB 2.9 NG/ML Troponin I LESS THAN 0.02 NG/ML MDM Supervised Visit with LUIS: Yes Narrative Course ECG shows no evidence of ischemia. Troponin is negative. He will be placed in chest pain center for further management. Diagnosis Primary Impression: Chest pain Qualified Codes: R07.9 - Chest pain, unspecified Admitting Information Admitting Physician Requests: Karla Uriostegui MD May 21, 2017 16:19
[2017-05-21 16:22] LABS: PROTHROMBIN TIME - PATIENT 10.2 SEC (9.8-11.6)
--- NOTE | 2017-05-21 16:36 | RADRPT ---
EXAM DATE/TIME: 05/21/2017 16:16 [facility] COMPARISON: No previous studies available for comparison. INDICATIONS : Chest pain. MEDICAL HISTORY : Stroke. SURGICAL HISTORY : None. ENCOUNTER: Initial ACUITY: 1 day PAIN SCORE: 3/10 LOCATION: Left chest FINDINGS: PA and lateral views of the chest demonstrate the lungs to be symmetrically aerated without evidence of mass, infiltrate or effusion. The cardiomediastinal contours are unremarkable. Osseous structure s are intact. Patient is status post lower cervical fusion with screw-plate fixation device. A stimul ator leads present at the midthoracic level. CONCLUSION: No acute disease. Joe Carey MD on May 21, 2017 at 16:32 Board Certified Radiologist. This report was verified electronically.
[2017-05-21 16:40] LABS: ALKALINE PHOSPHATASE 114 U/L (45-117); ALT (GPT) 27 U/L (12-78); TOTAL BILIRUBIN ADULT 0.5 MG/DL (0.2-1.0); TOTAL PROTEIN 6.9 GM/DL (6.4-8.2); TROPONIN I LESS THAN 0.02 NG/ML (0.02-0.05)
[2017-05-21 16:42] LABS: ALBUMIN 3.7 GM/DL (3.4-5.0); AST (GOT) 23 U/L (15-37); BICARBONATE 29.3 MEQ/L (21.0-32.0); BLOOD UREA NITROGEN 20 MG/DL (7-18); CALCIUM 8.5 MG/DL (8.5-10.1); CHLORIDE 106 MEQ/L (98-107); CREATININE 1.13 MG/DL (0.60-1.30); GLOMERULAR FILTRATION RATE 65 ML/MIN (>89); GLUCOSE,RANDOM 76 MG/DL (74-106); SODIUM (NA) 140 MEQ/L (136-145)
[2017-05-21] MEDS ORDERED: SODIUM CHLORIDE 0.9% FLUSH 10 ML FLUSH IV FLUSH PRN (17:15)
[2017-05-21 18:06] VITALS: BP 131/70; PULSE 66; RESP 16; O2SAT 92
[2017-05-21 18:29] VITALS: BP 136/72; PULSE 62; RESP 20; TEMP 98; O2SAT 93
[2017-05-21 19:34] LABS: TROPONIN I LESS THAN 0.02 NG/ML (0.02-0.05)
[2017-05-21] MEDS: SODIUM CHLORIDE 0.9% FLUSH 10 ML FLUSH IV FLUSH SCH (21:24)
[2017-05-21 21:48] VITALS: BP 134/83; PULSE 62; RESP 18; TEMP 98.5; O2SAT 94
[2017-05-21 22:31] LABS: TROPONIN I LESS THAN 0.02 NG/ML (0.02-0.05)
[2017-05-22] VITALS (8 sets, daily range): BP systolic 140–188; BP diastolic 79–106; PULSE 63–114; RESP 16–17; TEMP 97.6–98.4; O2SAT 95–96
--- NOTE | 2017-05-22 08:52 | HHI.HP ---
HPI Primary Care Physician Antwon Morales DO Chief Complaint Chest pain History of Present Illness This is a 66-year-old male that presents to ED via [facility] with a complaint of a left-sided chest discomfort. It occurred randomly. Most intense discomfort lasted a few seconds but the discomfort otherwise at a later level has remained ever since. This is been greater than 12 hours. There is no radiation of pain. [place] a little short of breath. [place] nauseous and diaphoretic. States that certain movements seem to worsen the symptoms. Denies personal history of CAD. Review of Systems General: Patient denies fevers, chills, and recent travel. HEENT: Patient denies headache, sore throat, difficulty swallowing. Cardiovascular: Has the chest discomfort as mentioned above. Denies sensation of heart beating rapidly or irregularly. No syncope. He was diaphoretic. Respiratory: He was short of breath. Denies inspirational chest discomfort. Denies coughing wheezing or hemoptysis. GI: He was nauseous. Patient denies vomiting, diarrhea, abdominal pain, bloody stools. Musculoskeletal: Chronic back pain. Patient denies joint pain or edema. Denies calf pain or edema. Neurovascular: Patient denies numbness, tingling, weakness in extremities. Denies headache. Endocrine: Denies polyuria and polydipsia. Hematologic: Denies easy bruising. Skin: Denies rash or itching. Past Family Social History Allergies: Coded Allergies: MRI PRECAUTION (Verified Adverse Reaction, Severe, NON COMPATIBLE SPINAL CORD STIMULATOR 09/09/15 KMD, 09/09/15) Blackboard PERCISION PLUS SPINAL CORD STIMULATOR Past Medical History Hyperlipidemia, chronic back pain, CVA. Denies hypertension, diabetes, and known CAD. Past Surgical History Back fusion. Cervical fusion. Spinal cord stimulator. Bilateral cataracts. Reported Medications Reported Meds & Active Scripts Active Hydrocodone-Acetamin 7.5-325 (Hydrocodone/Acetaminophen) 7.5 Mg-325 Mg Tablet 1 Tab PO Q8HR PRN Hydrocodone-Acetaminophen 7.5-300 Mg Tab 1 Tab PO Q8HR PRN Reported Tramadol (Tramadol HCl) 50 Mg Tab 50 Mg PO Q6H PRN Omeprazole 20 Mg Tab 20 Mg PO DAILY Gabapentin 300 Mg Cap 300 Mg PO QID Prozac (Fluoxetine HCl) 20 Mg Cap 20 Mg PO DAILY Atorvastatin (Atorvastatin Calcium) 40 Mg Tab 40 Mg PO HS Baclofen 10 Mg Tab 10 Mg PO HS PRN Aspirin 81 Mg Chew 324 Mg CHEW DAILY Allopurinol 100 Mg Tab 100 Mg PO DAILY Active Ordered Medications Current Medications Medications (Trade) Dose Ordered Sig/Dipti Route Start Time Stop Time Status Last Admin (NS Flush) 2 ml UNSCH PRN IVF 05/21/17 16:00 (NS Flush) 2 ml UNSCH PRN IV FLUSH 05/21/17 17:15 (NS Flush) 2 ml BID IV FLUSH 05/21/17 21:00 05/21/17 21:24 Family History Denies family history of CAD. Social History Lifetime non-smoker of tobacco products states he smokes marijuana. Denies alcohol abuse. Physical Exam Vital Signs Vital Signs Date Time Temp Pulse Resp B/P (MAP) Pulse Ox O2 Delivery O2 Flow Rate FiO2 05/22/17 08:30 98.2 73 16 163/91 (115) 95 05/22/17 03:54 97.6 63 17 160/87 (111) 96 05/22/17 00:41 98.3 66 17 141/79 (99) 96 05/22/17 00:10 63 05/22/17 00:00 95 05/21/17 21:48 98.5 62 18 134/83 (100) 94 05/21/17 18:29 98.0 62 20 136/72 (93) 93 05/21/17 18:22 05/21/17 18:06 66 16 131/70 (90) 92 Room Air 05/21/17 15:54 18 96 Room Air 05/21/17 15:50 74 18 98 Room Air 05/21/17 15:50 98.6 72 18 179/105 (129) 96 Room Air 05/21/17 15:46 98.6 71 18 179/105 (129) 98 Physical Exam GENERAL: This is a well-nourished, well-developed patient, in no apparent distress. Patient speaks in clear complete sentences. Patient is pleasant. HEENT: Head is atraumatic and normocephalic. Neck is supple without lymphadenopathy and trachea is midline. No JVD or carotid bruits. CARDIOVASCULAR: Regular rate and rhythm without murmurs, gallops, or rubs. RESPIRATORY: Clear to auscultation. Breath sounds equal bilaterally. No wheezes , rales, or rhonchi. Chest wall is nontender. No use of accessory muscles. GASTROINTESTINAL: Abdomen is nontender, nondistended. Abdomen soft. No obvious pulsatile mass or bruit. No CVA tenderness. Strong femoral pulses bilaterally. Normal bowel sounds in all quadrants. MUSCULOSKELETAL: Patient is moving upper and lower extremities freely. No calf tenderness or edema, no Homans sign. Strong pulses in upper and lower extremities. NEUROLOGICAL: Patient is alert and oriented. Cranial nerves 2-12 are grossly intact. No focal deficits and speech is clear. SKIN: No rash and turgor is normal. Laboratory Laboratory Tests Test 05/21/17 15:54 05/21/17 18:36 05/21/17 21:30 White Blood Count 10.6 Red Blood Count 4.70 Hemoglobin 14.9 Hematocrit 44.0 Mean Corpuscular Volume 93.6 Mean Corpuscular Hemoglobin 31.6 Mean Corpuscular Hemoglobin Concent 33.8 Red Cell Distribution Width 14.1 Platelet Count 220 Mean Platelet Volume 8.2 Neutrophils (%) (Auto) 59.0 Lymphocytes (%) (Auto) 29.5 Monocytes (%) (Auto) 8.0 Eosinophils (%) (Auto) 2.7 Basophils (%) (Auto) 0.8 Neutrophils # (Auto) 6.3 Lymphocytes # (Auto) 3.1 Monocytes # (Auto) 0.9 Eosinophils # (Auto) 0.3 Basophils # (Auto) 0.1 CBC Comment DIFF FINAL Differential Comment Prothrombin Time 10.2 Prothromb Time International Ratio 1.0 Activated Partial Thromboplast Time 28.5 Blood Urea Nitrogen 20 Creatinine 1.13 Random Glucose 76 Total Protein 6.9 Albumin 3.7 Calcium Level 8.5 Magnesium Level 2.0 Alkaline Phosphatase 114 Aspartate Amino Transf (AST/SGOT) 23 Alanine Aminotransferase (ALT/SGPT) 27 Total Bilirubin 0.5 Sodium Level 140 Potassium Level 4.3 Chloride Level 106 Carbon Dioxide Level 29.3 Anion Gap 5 Estimat Glomerular Filtration Rate 65 Total Creatine Kinase 139 105 116 Creatine Kinase MB 2.9 2.3 2.2 Troponin I LESS THAN 0.02 LESS THAN 0.02 LESS THAN 0.02 Result Diagram: 05/21/17 1554 05/21/17 1554 Imaging Chest x-ray reveals nothing acute. Course EKGs: First 2 EKGs have a lot of baseline artifact. Third EKG sinus rhythm without significant ST segment depressions or elevations. Caprini VTE Risk Assessment Caprini VTE Risk Assessment: Mod/High Risk (score >= 2) Caprini Risk Assessment Model Point Value = 1 Point Value = 2 Point Value = 3 Point Value = 5 Age 41-60 Minor surgery BMI > 25 kg/m2 Swollen legs Varicose veins or History of unexplained or recurrent spontaneous Oral contraceptives or hormone replacement Sepsis (< 1 month) Serious lung disease, including pneumonia (< 1 month) Abnormal pulmonary function Acute myocardial infarction Congestive heart failure (< 1 month) History of inflammatory bowel disease Medical patient at bed rest Age 61-74 Arthroscopic surgery Major open surgery (> 45 min) Laparoscopic surgery (> 45 min) Malignancy Confined to bed (> 72 hours) Immobilizing plaster cast Central venous access Age >= 75 History of VTE Family history of VTE Factor V Leiden Prothrombin [id number] Lupus anticoagulant Anticardiolipin antibodies Elevated serum homocysteine Heparin-induced thrombocytopenia Other congenital or acquired thrombophilia Stroke (< 1 month) Elective arthroplasty Hip, pelvis, or leg fracture Acute spinal cord injury (< 1 month) Prophylaxis Regimen Total Risk Factor Score Risk Level Prophylaxis Regimen 0-1 Low Early ambulation 2 Moderate Order ONE of the following: *Sequential Compression Device (SCD) *Heparin 5000 units SQ BID 3-4 Higher Order ONE of the following medications: *Heparin 5000 units SQ TID *Enoxaparin/Lovenox 40 mg SQ daily (WT < 150 kg, CrCl > 30 mL/min) *Enoxaparin/Lovenox 30 mg SQ daily (WT < 150 kg, CrCl > 10-29 mL/min) *Enoxaparin/Lovenox 30 mg SQ BID (WT < 150 kg, CrCl > 30 mL/min) AND/OR *Sequential Compression Device (SCD) 5 or more Highest Order ONE of the following medications: *Heparin 5000 units SQ TID (Preferred with Epidurals) *Enoxaparin/Lovenox 40 mg SQ daily (WT < 150 kg, CrCl > 30 mL/min) *Enoxaparin/Lovenox 30 mg SQ daily (WT < 150 kg, CrCl > 10-29 mL/min) *Enoxaparin/Lovenox 30 mg SQ BID (WT < 150 kg, CrCl > 30 mL/min) AND *Sequential Compression Device (SCD) Assessment and Plan Assessment and Plan * Chest pain: Patient has had serial cardiac enzymes and EKGs for ruling out purposes. He was seen by Dr. Matamoros of cardiology in the chest pain center. He will undergo a Lexiscan. He will be discharged home if the stress test is nonischemic with instructions to follow-up with PCP. Return to ED for interval issues. * Hyperlipidemia: Continue medications. * Chronic back pain: Continue medications. * History of prior CVA: Resume his medication. Patient is stable at this time. He is agreeable to this plan. Tyrell Anderson May 22, 2017 08:52
[2017-05-22] MEDS ORDERED: FLUoxetine HCL 20 MG CAP PO SCH (09:00)
[2017-05-22] MEDS ORDERED: BACLOFEN 10 MG TAB PO PRN (09:00)
[2017-05-22] MEDS ORDERED: ACETAMINOPHEN/HYDROcodone 325 MG/7.5 MG TAB PO PRN (09:00)
[2017-05-22] MEDS ORDERED: GABAPENTIN 300 MG CAP PO SCH (09:00)
[2017-05-22] MEDS ORDERED: ASPIRIN 325 MG TAB PO SCH (09:00)
[2017-05-22] MEDS ORDERED: PANTOPRAZOLE SOD 20 MG DELAYED RELEASE TAB PO SCH (09:00)
[2017-05-22] MEDS ORDERED: REGADENOSON INJ 0.4 MG/5 ML SYR ONE (09:31)
--- NOTE | 2017-05-22 10:20 | TR ---
Date Performed: 05/22/2017 Time Performed: 09:33:07 DOCTOR: Adenike Matamoros DRUG LIST: CLINICAL HISTORY: ANGINA REASON FOR TEST: Angina REASON FOR ENDING: OBSERVATION: CONCLUSION: Lexiscan stress test was performed under standard four minute protocol. Radionuclid e was injected one minute prior to ending the test. No electrocardiographic abormalities were present to suggest ischemia. Nuclear imaging and interpretation are pending. COMMENTS:
--- NOTE | 2017-05-22 10:44 | RADRPT ---
EXAM DATE/TIME: 05/22/2017 09:14 [facility] COMPARISON: No previous studies available for comparison. INDICATIONS : Substernal chest pain. Angina. DOSE: 26.5 mCi Tc99m Myoview at stress. 8.5 mCi Tc99m Myoview at rest. 0.4 mg Lexiscan STRESS SYMPTOMS: Sneezing, nausea and vomiting. EJECTION FRACTION: 61% MEDICAL HISTORY : Stroke. Gastroesophageal reflux disease. Asthma. SURGICAL HISTORY : Fusion, cervical. Spinal stimulator. ENCOUNTER: Initial ACUITY: 1 day PAIN SCALE: 6/10 LOCATION: Substernal chest TECHNIQUE: The patient underwent pharmacologic stress with infusion of prescribed dose. Continuous ECG tracing was monitored during stress. Gated SPECT imaging was performed after stress and conventional SPECT i maging was performed at rest. The examination was performed on a SPECT/CT scanner, both attenuation and non-corrected datasets were reviewed. FINDINGS: DISTRIBUTION: The maximum perfused segment at stress is in the lateral wall. PERFUSION STUDY: The pattern of perfusion at stress is within normal limits. GATED STUDY: There is intact wall motion and thickening without hypokinetic or dyskinetic segments. CONCLUSION: No reversible defects observed to suggest acute ischemia. RISK CATEGORY: Low Bertram Mccormack Jr., MD on May 22, 2017 at 10:41 Board Certified Radiologist. This report was verified electronically.
[2017-05-22] MEDS: SODIUM CHLORIDE 0.9% FLUSH 10 ML FLUSH IV FLUSH SCH (10:52)
--- NOTE | 2017-05-22 11:07 | HHI.DCPOC ---
Discharge Care Plan Diagnosis: (1) Chest pain (2) Hyperlipidemia (3) Chronic back pain Goals to Promote Your Health * To prevent worsening of your condition and complications * To maintain your health at the optimal level Directions to Meet Your Goals Take your medications as prescribed Follow your dietary instruction Follow activity as directed Keep your appointments as scheduled Take your immunizations and boosters as scheduled If your symptoms worsen call your PCP, if no PCP go to Urgent Care Center or Emergency Room Smoking is Dangerous to Your Health. Avoid second hand smoke Call the 24-hour hour crisis hotline for domestic abuse at Tyrell Anderson May 22, 2017 11:07
[2017-05-22] MEDS ORDERED: cloNIDine HCL 0.1 MG TAB PO PRN (11:15)
[2017-05-22] MEDS ORDERED: traMADol HCL 50 MG TAB PO PRN (11:15)
--- NOTE | 2017-05-22 16:56 | EKG ---
Date Performed: 05/21/2017 Time Performed: 21:53:41 PTAGE: 66 years EKG: Sinus rhythm POSSIBLE INFERIOR MYOCARDIAL INFARCTION BORDERLINE ECG Artifact Since PREVIOUS TRACING , no significant change noted PREVIOUS TRACIN05/21/2017 18.41 DOCTOR: Adenike Matamoros Interpretating Date/Time 05/22/2017 16:55:14
[2017-05-22] MEDS ORDERED: ATORVASTATIN 40 MG TAB PO SCH (21:00)
--- NOTE | 2017-05-23 23:12 | EKG ---
Date Performed: 05/21/2017 Time Performed: 18:41:07 PTAGE: 66 years EKG: Sinus rhythm ABNORMAL ECG PREVIOUS TRACING : 05/21/2017 15.56 Since the previous tracing, no significant change noted DOCTOR: Jose Ferrer Interpretating Date/Time 05/23/2017 23:11:21
--- NOTE | 2017-05-23 23:12 | EKG ---
Date Performed: 05/21/2017 Time Performed: 15:56:06 PTAGE: 66 years EKG: Sinus rhythm NORMAL ECG Since the PREVIOUS TRACING , no significant change noted DOCTOR: Jose Ferrer Interpretating Date/Time 05/23/2017 23:11:42
== END 2017-05-22 14:22 | disposition home or self-care (01) ==
LOC: NEPE 15:32 → NEDA 17:10 → NEPGCP 18:36
PROVIDERS: ADMIT Internal Medicine Cardiovascular Disease; ATTEND Internal Medicine Cardiovascular Disease
DX: R07.89 Other chest pain (principal); R06.02 Shortness of breath; R61 Generalized hyperhidrosis; R11.0 Nausea; E78.00 Pure hypercholesterolemia, unspecified; R94.31 Abnormal electrocardiogram [ECG] [EKG]; J45.909 Unspecified asthma, uncomplicated; K21.9 Gastro-esophageal reflux disease without esophagitis; M54.9 Dorsalgia, unspecified; G89.29 Other chronic pain; H91.90 Unspecified hearing loss, unspecified ear; F41.9 Anxiety disorder, unspecified; F32.9 Major depressive disorder, single episode, unspecified; M19.90 Unspecified osteoarthritis, unspecified site; F12.90 Cannabis use, unspecified, uncomplicated; Z86.73 Personal history of transient ischemic attack (TIA), and cerebral infarction without residual deficits; Z79.899 Other long term (current) drug therapy; Z79.82 Long term (current) use of aspirin; Z82.49 Family history of ischemic heart disease and other diseases of the circulatory system
CPT/HCPCS: 71046; 78452; 80053; 82550; 82552; 83735; 84484; 85025; 85610; 85730; 93005; 93017; 99285; A9502; G0378; J2785